=== PATIENT | male | born 1980 ===

== ENCOUNTER 2019-07-13 09:54 | Outpatient (CLI) | payer OTHER ==
[~2019-07-13] VITALS: Ht 162 cm; Wt 93.8 kg
[2019-07-13 10:08] VITALS: BP 136/85
[2019-07-13 11:07] LABS: BASOPHILS # (AUTO) 0.1 10^3/uL (0.0-0.1); BASOPHILS % (AUTO) 1 % (0-10); EOSINOPHILS # (AUTO) 0.5 10^3/uL (0.0-0.3); EOSINOPHILS % (AUTO) 6 % (0-10); HEMATOCRIT 47 % (40-54); HEMOGLOBIN 16.2 G/DL (13.3-17.7); LYMPHOCYTES # (AUTO) 1.7 X 10^3 (1.0-4.0); LYMPHOCYTES % (AUTO) 21 % (12-44); MEAN CORPUSCULAR HEMOGLOBIN 29 PG (25-34); MEAN CORPUSCULAR HGB CONC 34 G/DL (32-36); MEAN CORPUSCULAR VOLUME 86 FL (80-99); MEAN PLATELET VOLUME 9.9 FL (7.4-10.4); MONOCYTES # (AUTO) 0.8 X 10^3 (0.0-1.0); MONOCYTES % (AUTO) 9 % (0-12); NEUTROPHILS # (AUTO) 5.1 X 10^3 (1.8-7.8); NEUTROPHILS % (AUTO) 63 % (42-75); PLATELET COUNT 254 10^3/uL (130-400); RED CELL DISTRIBUTION WIDTH 13.3 % (10.0-14.5)
[2019-07-13 11:27] LABS: BUN/CREATININE RATIO 18; CALCIUM 8.5 MG/DL (8.5-10.1); CARBON DIOXIDE 25 MMOL/L (21-32); CHLORIDE 108 MMOL/L (98-107); CREATININE SERUM 0.82 MG/DL (0.60-1.30); GFR ESTIMATED > 60; GLUCOSE 92 MG/DL (70-105); SODIUM 141 MMOL/L (135-145)
[2019-07-16] MEDS ORDERED: DOCU-143 PO (09:02)
[2019-07-16] MEDS ORDERED: ACHD5005 PO (09:02)
== END 2019-07-13 14:01 | disposition home or self-care (01) ==
LOC: PREOP 09:54 → EDUNIT# 10:00 → PREOP 14:01
PROVIDERS: ATTEND Surgery
DX: Z01.818 Encounter for other preprocedural examination (principal); K40.90 Unilateral inguinal hernia, without obstruction or gangrene, not specified as recurrent
CPT/HCPCS: 36415; 80048; 85025; 87081

== ENCOUNTER 2019-07-16 06:57 | Day surgery (SDC) | payer OTHER ==
[~2019-07-16] VITALS: Ht 162 cm; Wt 93.8 kg
[2019-07-16] VITALS (11 sets, daily range): BP systolic 125–147; BP diastolic 74–102
[2019-07-16] MEDS ORDERED: ceFAZolin 2 GM/50 ML NS 50 ML IV ONE (07:15)
[2019-07-16] MEDS: LACTATED RINGERS 1,000 ML IV PRN ×2 (07:28→08:55)
[2019-07-16] MEDS ORDERED: CATHETER FLUSH 10 ML SYR IV PRN (07:30)
--- NOTE | 2019-07-16 07:36 | Progress Note-Pre Operative ---
Pre-Operative Progress Note H&P Reviewed The H&P was reviewed, patient examined and no changes noted. Date Seen by Provider: Jul 16, 2019 Time Seen by Provider: 07:36 Date H&P Reviewed: Jul 16, 2019 Time H&P Reviewed: 07:36 Pre-Operative Diagnosis: incisional hernia HUGH ALFREDO DO Jul 16, 2019 07:36
[2019-07-16] MEDS ORDERED: BUP/EPI 0.25% 1:200,000 (MARCAINE) 10 ML VIAL IJ ONE (07:38)
[2019-07-16] MEDS ORDERED: fentaNYL INJECTION 100 MCG/2 ML AMP ONE ×2 (07:59→08:43)
[2019-07-16] MEDS ORDERED: MIDAZOLAM 2 MG/2 ML (VERSED) VIAL ONE (07:59)
[2019-07-16] MEDS ORDERED: DEXAMETHASONE 10 MG/ML (DECADRON) 1 ML VIAL ONE (08:01)
[2019-07-16] MEDS ORDERED: ONDANSETRON 4 MG/2 ML (SDV) Z0FRAN ONE (08:01)
[2019-07-16] MEDS ORDERED: SEVOFLURANE (ULTANE) 15 ML INHAL SOLN ONE ×2 (08:01→08:51)
[2019-07-16] MEDS ORDERED: ROCURONIUM 10 MG/ML 5 ML SYRINGE IV ONE (08:01)
[2019-07-16] MEDS ORDERED: proPOfol 200 MG/20 ML (DIPRIVAN) VIAL IV ONE (08:01)
[2019-07-16] MEDS ORDERED: LIDOCAINE PF 2% 5 ML (XYLOCAINE) VIAL ONE (08:01)
[2019-07-16] MEDS ORDERED: NEOSTIGMINE 3 MG/3 ML VIAL ONE (08:47)
[2019-07-16] MEDS ORDERED: GLYCOPYRROLATE 0.2 MG/ML (ROBINUL) 2 ML VIAL ONE (08:47)
--- NOTE | 2019-07-16 09:01 | Progress Note-Post Operative ---
Post-Operative Progess Note Surgeon (s)/Power Sweeper Operator (s) Surgeon HUGH ALFREDO DO Power Sweeper Operator: Dr. Miles Pre-Operative Diagnosis incisional hernia Post-Operative Diagnosis incarcerated incisional hernia Procedure & Operative Findings Date of Procedure 07/16/19 Procedure Performed/Findings lap incarcerated incisional hernia Anesthesia Type gen Estimated Blood Loss Estimated blood loss (mL): min Specimens/Packing Specimens Removed na HUGH ALFREDO DO Jul 16, 2019 09:01
[2019-07-16] MEDS ORDERED: ACHD5005 PO (09:02)
[2019-07-16] MEDS ORDERED: DOCU-143 PO (09:02)
--- NOTE | 2019-07-16 09:03 | Discharge Inst-Simple/Standard ---
Discharge Inst-Standard Discharge Medications New, Converted or Re-Newed RX: RX on Chart Patient Instructions/Follow Up Plan of Care/Instructions/FU: 2-3 weeks [place] Activity as Tolerated: No Discharge Diet: Regular Diet Other Inst to Patient Follow up Appt: Make appointment for 2-3 week. Instructions: No lifting greater than 10 pounds. No strenuous activity. May shower in 24 hours, no tub bath or soaking. Use incentive spirometer at home as directed. No Smoking Skin/Wound Care: May remove bandages in 48 hours. You have special glue over incisions it will fall off on its own. Symptoms to Report: Appetite Changes, Extremity Discoloration, Numbness/Tingling, Swelling Increased, Bleeding Excessive, Eyesight Changes, Pain Increased, Urine Color Change, Constipation(Persistent), Fever over 101 degree F, Pain/Pressure in chest, Urinating Difficulty, Cough Up/Vomit Blood, Heart Beat Irreg/Pounding, Pain/Pressure in jaw, Vaginal Bleeding Increase, Cramps in feet or legs, Lightheadedness, Pain/Pressure in shoulder, Diarrhea(Persistent), Memory Changes Suddenly, Questions/Concerns, Weight gain consecutive days, Dizziness/Fainting, Nausea/Vomiting, Shortness of Breath, Weight gain over 2 pounds If questions or concerns contact your physician Or seek help at emergency department. HUGH ALFREDO DO Jul 16, 2019 09:03
[2019-07-16] MEDS ORDERED: RT-ALBUTEROL HFA (VENTOLIN) PER PUFF IH ONE (09:36)
[2019-07-16] MEDS ORDERED: morphine INJ 10 MG/ML 1ML (SYR OR VIAL) ONE (09:39)
[2019-07-16] MEDS ORDERED: morphine INJ 10 MG/ML 1ML (SYR OR VIAL) IVP ONE (09:45)
[2019-07-16] MEDS ORDERED: ONDANSETRON 4 MG/2 ML (SDV) Z0FRAN IVP PRN (09:45)
[2019-07-16] MEDS ORDERED: PROMETHAZINE INJ 25 MG/ML (PHENERGAN) AMP IVP ONE (09:45)
[2019-07-16] MEDS ORDERED: LABETALOL HCL 100 MG/20 ML VIAL IV PRN (10:15)
[2019-07-16] MEDS ORDERED: LABETALOL HCL 20 MG/4 ML VIAL ONE (10:17)
[2019-07-16] MEDS ORDERED: LABETALOL HCL 20 MG/4 ML VIAL IV ONE (10:30)
[2019-07-16] MEDS ORDERED: HYDROcodone/APAP 5 MG/325 MG (LORTAB) TAB PO ONE (10:45)
--- NOTE | 2019-07-16 11:38 | Anesthesia-General Post-Op ---
General Patient Condition Mental Status/LOC: Same as Preop Cardiovascular: Satisfactory Nausea/Vomiting: Absent Respiratory: Satisfactory Pain: Controlled Complications: Absent Post Op Complications Complications None Follow Up Care/Instructions Patient Instructions None needed. Anesthesia/Patient Condition Patient Condition Patient is doing well, no complaints, stable vital signs, no apparent adverse anesthesia problems. No complications reported per nursing. JAGRUTI ORTIZ CRNA Jul 16, 2019 11:38
--- NOTE | 2019-07-16 11:58 | OPERATIVE REPORT ---
DATE OF SERVICE: 07/16/2019 PREOPERATIVE DIAGNOSIS: Incisional hernia. POSTOPERATIVE DIAGNOSIS: Incarcerated incisional hernia. SURGEON: Hugh Pizano DO ADMINISTRATION SPECIALIST: Dr. Miles, assisted in retraction, dissection and closure. ANESTHESIA: General. ESTIMATED BLOOD LOSS: Minimal. COMPLICATIONS: None. INDICATIONS: The patient is a 38-year-old male with a previous appendectomy. He developed hernia. He understands risks and benefits of procedure and wished to proceed with procedure. Consent was signed in the chart. DESCRIPTION OF PROCEDURE: The patient was taken to the operating suite, was prepped and draped in sterile fashion. Surgical pause was performed. Local anesthetic was infiltrated in the left upper quadrant, incision was made. Dissection was taken down through the abdominal wall until the peritoneum was encountered and opened. The balloon trocar was inserted and pneumoperitoneum was achieved. Under direct visualization of the laparoscope, a 5 mm trocar was placed in the right lower quadrant and also in the left lower quadrant. The hernia was at the umbilical incision sites. The omentum was incarcerated through this, which had to be grasped and dissected out through the hernia. A stab incision was made at the umbilicus and a Apolinar-Sonia and 0 Vicryl was used to close the defect. A Apolinar-Sonia was inserted and a 4-1/2 inch round Echo Ventralight mesh was then inserted in the abdomen and grasped and a SecureStrap Tacker was used to tack circumferentially with adequate coverage of the hernia defect. Once tacked, the balloon was removed and inner crown was created as well. The abdomen was then desufflated, the trocars were removed. The fascial defect of the left upper quadrant incision was then closed using 0 Vicryl in a [id number] fashion. The abdomen was then washed and dried. Skin was then closed using 4-0 Monocryl in a subcuticular fashion. Skin Affix was placed over the incisions. Tonsil ball was used in the umbilicus to suction down for pressure to try to get the umbilical skin to re-adhere. The patient tolerated procedure well without any complications, taken to recovery room in stable condition. Job ID: [id number] DocumentID: [id number] Dictated Date: 07/16/2019 09:10:26 Blocker And Polisher Date: 07/16/2019 11:57:43 Dictated By: HUGH PIZANO DO
== END 2019-07-16 12:10 | disposition home or self-care (01) ==
LOC: SDC 06:57
PROVIDERS: ATTEND Surgery
DX: K43.0 Incisional hernia with obstruction, without gangrene (principal); E66.9 Obesity, unspecified; Z90.89 Acquired absence of other organs; Z68.35 Body mass index [BMI] 35.0-35.9, adult; Z79.891 Long term (current) use of opiate analgesic
CPT/HCPCS: 94664